=== PATIENT | female | born 1985 | race Caucasian/White ===

== ENCOUNTER 2023-08-24 16:37 | Emergency (ER) | payer OTHER, SELFPAY ==
[2023-08-24 16:40] VITALS: BP 123/76; PULSE 88; RESP 18; TEMP 35.7; O2SAT 100
--- NOTE | 2023-08-24 16:54 | EKG12_ITS ---
Test Reason : CHEST HEAVINESS Blood Pressure : / mmHG Vent. Rate : 076 BPM Atrial Rate : 076 BPM P-R Int : 166 ms QRS Dur : 092 ms QT Int : 404 ms P-R-T Axes : 034 087 074 degrees QTc Int : 454 ms Normal sinus rhythm Normal ECG Confirmed by TESS TAVAREZ, J CARLOS ([id number]), state editor ROYAL PEACE ([id number]) on 09/02/2023 2:12:47 PM Referred By: Confirmed By:J CARLOS PULIDO MD
--- NOTE | 2023-08-24 16:57 | EDS_ITS ---
HPI History of Present Illness Chief Complaint: Anxiety Informant: patient Onset/Context/Timing Onset: Today Narrative Narrative: Patient presents secondary to anxiety, dizziness, shortness of breath. She states has not felt well for the past couple days. Her daughter did test positive for COVID but she tested 2 days ago and was negative. She was in [place] visiting her son earlier today and drove home and felt okay. While out to lunch with her and friends she started to feel lightheaded and dizzy with some chest heaviness and shortness of breath. She is not sure if this may be anxiety related. She cannot remember if she took her Wellbutrin this morning. [facility] Medical History Anxiety Allergy/AdvReac Type Severity Reaction Status Date / Time No Known Allergies Allergy Verified 08/24/23 16:40 Social History Smoking Status: Never smoker ROS ROS ED Constitutional Constitutional ED: Denies chills or fever(s) Eyes Eyes: Denies change in vision ENT ENT ED: Denies rhinorrhea or sore throat Cardiovascular Cardiovascular: Reports chest pain; Denies palpitations Respiratory/Chest Respiratory/Chest: Reports dyspnea Gastrointestinal Gastrointestinal: Denies abdominal pain, nausea or vomiting Genitourinary Genitourinary ED: Denies dysuria Musculoskeletal Musculoskeletal: Denies back pain or extremity pain Integumentary Denies Abrasions or rash Neurologic Neurologic: Denies headache(s) or weakness Psychiatric Psychiatric: Reports anxiety; Denies depression Endocrine Endocrinology: Denies polydipsia or polyuria Allergic/Immunologic Allergic/Immunologic ED: Denies lip swelling or urticaria EXAM Physical Exam Const Vital Signs: 08/24/23 16:40 08/24/23 16:50 08/24/23 18:24 Temperature 96.2 F L Temperature Source Temporal Pulse Rate 88 75 Respiratory Rate 18 14 Respiratory Effort Short of Breath Blood Pressure 123/76 H 114/85 H Blood Pressure Mean 91 94 Pulse Ox 100 100 Oxygen Delivery Method Room Air Room Air Positive well nourished and well developed General Appearance ED: well developed HEENT Reports moist mucous membranes Eyes EOMs intact bilaterally Chest Wall inspection of chest normal and palpation of chest normal Resp normal respiratory effort and clear to auscultation bilaterally Cardio regular rate and regular rhythm GI non-tender Palpation: soft Neuro oriented x3 and no sensory deficits noted Motor Exam: strength 5/5 throughout Psych mental status grossly normal Skin no rashes or lesions noted MDM MDM MDM Narrative Medical decision making narrative: 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 EKG obtained to evaluate for cardiac arrhythmia/ischemia. Chest x-ray obtained to evaluate for acute lung pathology, cardiac size, or mediastinal abnormality. Labwork obtained to evaluate for leukocytosis, anemia, and electrolyte derangement. History & Record Review Discussion w/independent historian: Patient Lab Data Attestation: I reviewed the patient's lab results. Labs: Laboratory Results - last 24 hr 08/24/23 17:05 WBC 4.8 RBC 3.94 L Hgb 12.2 Hct 38.0 MCV 96.4 MCH 31.0 MCHC 32.1 RDW Std Deviation 41.6 RDW Coeff of [place] 11.7 Plt Count 220 MPV 9.5 Immature Gran % (Auto) 0.200 Neut % (Auto) 49.5 Lymph % (Auto) 36.0 [place] % (Auto) 10.3 H Eos % (Auto) 2.7 Baso % (Auto) 1.3 H Absolute Neuts (auto) 2.4 Absolute Lymphs (auto) 1.71 Nucleated RBC % 0 D-Dimer Quant (PE/DVT) 0.28 Sodium 138 Potassium 3.2 L Chloride 104 Carbon Dioxide 30.0 Anion Gap 4 L BUN 13 Creatinine 0.95 Est GFR (MDRD) Af Amer 86 Est GFR (MDRD) Non-Af 71 BUN/Creatinine Ratio 13.7 Glucose 99 Calcium 8.0 L Total Bilirubin 0.40 Direct Bilirubin 0.10 AST 16 ALT 21 Alkaline Phosphatase 79 Troponin I High Sens 4 Total Protein 7.2 Albumin 3.6 Globulin 3.6 Lipase 32 Serum , Qual NEGATIVE Radiography Chest X-Ray - ED: 1 View, Read by ED Physician, Normal, Heart, Lungs and Mediastinum Diagnostic Testing: Clinical Impression(s) from Imaging Studies Chest X-Ray 08/24/23 17:16 IMPRESSION: No radiographic evidence of acute cardiopulmonary disease. Electronically Signed: Patrick Phillips DO at 17:27 EST , EKG Initial EKG: Attestation: I personally reviewed and interpreted this EKG as follows: Interpretation: Sinus Rhythm (Sinus at 76 with no acute ischemia.) Treatment and Re-Evaluation :: CBC was normal white count and hemoglobin. No left shift noted. Chemistry studies reveal slightly low potassium at 3.2. LFTs are unremarkable. Troponin and D-dimer are both normal. test negative. COVID test does return positive. Portable chest x-ray per my interpretation was no focal infiltrate. Radiology interpretation reviewed and agrees. EKG is sinus at 76 with no acute ischemia. Test results discussed with patient and family at bedside. Advised to contact her employer to determine how long she needs to be off work. Return instructions provided. She will continue supportive care. Discharge Plan Triage Chief Complaint: Anxiety Other Complaint: Dizziness ED Provider: Michelle Carreno Dx/Rx/DC Orders Clinical Impression: COVID-19 Instructions: Coronavirus Disease 2019 (COVID-19): Overview, Coronavirus [facility] 2019 (COVID-19): Caring for Yourself or Others Primary Care Provider: Scar Meza Referrals: Scar Meza, DO [Primary Care Provider] - As Needed NOT,DEFINED [Non-Staff] - Disposition Disposition: Home, Self Care
[2023-08-24 17:14] LABS: Absolute Lymphocyte Count 1.71 X10^3/uL (0.83-4.51); Absolute Neutrophil Count 2.4 X10^3/uL (2.0-7.7); Basophil# 0.06 X10^3/uL; Basophil% 1.3 % (0-1); Eosinophil# 0.13 X10^3/uL; Eosinophils% 2.7 % (0-5); Hemoglobin 12.2 g/dL (12.0-15.0); Lymphocyte # 1.71 X10^3/ul (0.83-4.51); Mean Corp Hgb Conc 32.1 g/dL (32-36); Mean Corpuscular Volume 96.4 fL (81-99); Mean Platelet Vol. 9.5 fl (6.2-12.0); Monocyte# 0.49 X10^3/uL; Monocyte% 10.3 % (0-10); NRBC Flagged by Analyzer 0 % (0-5); Neutrophil # 2.35 X10^3/uL (2.7-7.7); Neutrophil % 49.5 % (47-70); Platelet Count 220 K/mm3 (150-450); RBC Distribution Width CV 11.7 % (11.6-14.6); RBC Distribution Width SD 41.6 fl (35.1-43.9); Red Blood Count 3.94 M/mm3 (4.2-5.4); White Blood Count 4.8 K/mm3 (4.4-11.0)
--- NOTE | 2023-08-24 17:16 | RAD_ITS ---
EXAM: XR CHEST, 1 VIEW CLINICAL INDICATION: sob TECHNIQUE: Frontal view of the chest. COMPARISON: No relevant prior studies available. FINDINGS: LUNGS AND PLEURAL SPACES: No significant abnormality. No consolidation or edema. No pneumothorax. No effusion. HEART: No significant abnormality. Cardiac silhouette not enlarged. MEDIASTINUM: Central airways and mediastinal contour are unremarkable. BONES/JOINTS: No significant abnormality. SOFT TISSUES: No significant abnormality. RAD/Chest 1 View (Portable) IMPRESSION: No radiographic evidence of acute cardiopulmonary disease. Electronically Signed: Patrikc Phillips DO at 17:27 EST ,
[2023-08-24 17:26] LABS: D-Dimer Quantitative (DVT/PE) 0.28 FEU/ug/m (0.27-0.49)
[2023-08-24 17:33] LABS: Internal QC Validated? YES +Cl - CLEAR BKGD; Pregnancy, Serum, hCG Quali. NEGATIVE Negative; Record Kit Lot#, Serum Preg. 667200
[2023-08-24 17:43] LABS: AST(SGOT) 16 U/L (15-37); Alanine Aminotransfer ALT/SGPT 21 U/L (13-56); Albumin, Serum 3.6 g/dL (3.2-5.0); Alkaline Phosphatase 79 U/L (45-117); Anion Gap 4 (5-15); BUN 13 mg/dL (7-18); BUN/Creat Ratio 13.7 RATIO (10-20); Chloride 104 mmol/L (98-107); Creatinine, Serum 0.95 mg/dL (0.55-1.02); EST Glomerular Filtration Rate 71 mL/min (>60); Est Glom Filt Rate - Afr Amer 86 mL/min (>60); Globulin 3.6 g/dL (2.2-4.2); Glucose 99 mg/dL (74-106); Lipase 32 U/L (13-75); Potassium 3.2 mmol/L (3.5-5.1); Protein, Total 7.2 g/dL (6.4-8.2); Sodium Level 138 mmol/L (136-145); Troponin-I HS 4 pg/mL (3.0-54.0)
[2023-08-24 18:24] VITALS: BP 114/85; PULSE 75; RESP 14; O2SAT 100
[2023-08-24] MEDS: Potassium Chloride Oral Tablet 20 MEQ 40 MEQ PO (18:31)
[2023-08-24 18:45] VITALS: BMI 19.4
== END 2023-08-24 18:46 | disposition home or self-care (01) ==
PROVIDERS: Emergency Provider Emergency Medicine; PCP Family Medicine; Visit Provider Emergency Medicine
DX: U07.1 COVID-19 (principal); R42 Dizziness and giddiness; R06.02 Shortness of breath
CPT/HCPCS: 71045; 80048; 80076; 83690; 84484; 84703; 85025; 85379; 87811; 93005; 99285